=== PATIENT | male | born 1950 | race Caucasian/White ===

== ENCOUNTER 2017-12-19 10:39 | Emergency (ER) | payer MEDICARE ==
[2017-12-19 11:11] LABS: Bilirubin Moderate (Negative); Blood, Urine Large (Negative); Clarity CLOUDY (Clear); Glucose, Urine (Dipstick) >=1000 mg/dL (Negative); Leukocyte Small (Negative); Nitrite Positive (Negative); Protein, Urine (Dipstick) 300 mg/dL (Neg-Trace); Specific Gravity, Urine 1.034 (1.002-1.036); Urobilinogen 0.2 mg/dL (0.2-1.0); pH, Urine 5.5 (5.0-9.0)
[2017-12-19 11:16] LABS: Bacteria/HPF None Seen HPF (None Seen); Hyaline Casts/LPF 0-3 HYALINE CAST LPF (0-3 Hyaline); RBC/HPF 21-50 HPF (0-3); Squamous Epithelial None Seen HPF (0-3); WBC/HPF None Seen HPF (0-3)
== END 2017-12-19 12:55 | disposition home or self-care (01) ==
LOC: ERS 10:39
DX: R33.9 Retention of urine, unspecified (principal); R31.9 Hematuria, unspecified; I25.2 Old myocardial infarction; E11.9 Type 2 diabetes mellitus without complications; I10 Essential (primary) hypertension; Z87.891 Personal history of nicotine dependence; Z79.899 Other long term (current) drug therapy; Z79.82 Long term (current) use of aspirin; Z79.84 Long term (current) use of oral hypoglycemic drugs
CPT/HCPCS: 51702; 81003; 81015; 87086; 96374; 96375

== ENCOUNTER 2017-12-20 12:05 | Outpatient (CLI) | payer MEDICARE ==
[2017-12-20 14:49] LABS: Blood, Urine Large (Negative); Glucose, Urine (Dipstick) >=1000 mg/dL (Negative); Leukocyte Trace (Negative); Protein, Urine (Dipstick) 100 mg/dL (Neg-Trace)
[2017-12-20 14:52] LABS: Bilirubin Unable to Interpret (Negative); Clarity Opaque (Clear); Nitrite Unable to Interpret (Negative); Urobilinogen UNABLE TO INTERPRET mg/dL (0.2-1.0)
[2017-12-20 15:00] LABS: Specific Gravity, Urine 1.015 (1.005-1.030)
[2017-12-20 15:01] LABS: RBC/HPF GREATER THAN 50-TNTC HPF (0-3)
[2017-12-20 15:02] LABS: Bacteria/HPF None Seen HPF (None Seen); Hyaline Casts/LPF NONE SEEN LPF (0-3 Hyaline); PTT 28.3 SEC (22.9-36.1); Prothrombin Time 13.2 SEC (12.0-14.7); Squamous Epithelial 0-3 HPF (0-3)
--- NOTE | 2017-12-20 20:28 | EKG ---
Test Reason : Blood Pressure : / mmHG Vent. Rate : 102 BPM Atrial Rate : 102 BPM P-R Int : 194 ms QRS Dur : 106 ms QT Int : 380 ms P-R-T Axes : 026 116 124 degrees QTc Int : 495 ms Sinus tachycardia Right axis deviation Cannot rule out Anterior infarct , age undetermined T wave abnormality, consider lateral ischemia Abnormal ECG No previous ECGs available Confirmed by CORRINA GROSS ([id number]) on 12/20/2017 8:28:15 PM Referred By: REUBEN Confirmed By:CORRINA GROSS
== END 2017-12-20 12:06 | disposition home or self-care (01) ==
LOC: LABBT 12:05
PROVIDERS: ATTEND Urology
DX: Z01.818 Encounter for other preprocedural examination (principal); N20.0 Calculus of kidney; N32.89 Other specified disorders of bladder; R00.0 Tachycardia, unspecified; R94.31 Abnormal electrocardiogram [ECG] [EKG]
CPT/HCPCS: 81001; 85610; 85730; 87077; 87086; 87186; 93005; 93010

== ENCOUNTER 2017-12-27 07:09 | Outpatient (CLI) | payer MEDICARE | END 2017-12-27 07:10 | disposition home or self-care (01) | LOC: BICCT 07:09 | PROVIDERS: ATTEND Urology | DX: Z01.818 Encounter for other preprocedural examination (principal); R31.0 Gross hematuria; N32.89 Other specified disorders of bladder; N20.0 Calculus of kidney; N28.1 Cyst of kidney, acquired; I70.90 Unspecified atherosclerosis; K76.89 Other specified diseases of liver | CPT/HCPCS: 74178; 82565; 86850; 86900; 86901 ==

== ENCOUNTER 2017-12-29 05:40 | Day surgery (SDC) | payer MEDICARE ==
[2017-12-29] MEDS ORDERED: Levofloxacin 500 mg/D5W 100 ml Premix Bag ONE (06:30)
[2017-12-29] MEDS ORDERED: Iothalamate Meglumine 60% 50 ML VIAL FS ONE (06:35)
[2017-12-29] MEDS ORDERED: Fentanyl 100 MCG/2 ML VIAL ONE ×3 (06:43→09:10)
[2017-12-29] MEDS ORDERED: mitoMYcin 40 MG in Sterile Water 20 ML I-VESIC SCH (06:45)
[2017-12-29] MEDS ORDERED: B & O ONE (07:25)
[2017-12-29] MEDS ORDERED: Phenazopyridine HCl 97.5 MG TABLET ONE ×2 (09:58)
[2017-12-29] MEDS ORDERED: Oxybutynin 5 MG TAB ONE (10:02)
--- NOTE | 2017-12-29 10:24 | OP ---
DATE OF SURGERY: 12/29/2017 SERVICE: Urology. SURGEON: Gonsalo Carr M.D. PREOPERATIVE DIAGNOSIS: Bladder cancer. POSTOPERATIVE DIAGNOSIS: Bladder cancer. PROCEDURE PERFORMED: Transurethral resection of bladder tumor with instillation of mitomycin C. INDICATIONS FOR PROCEDURE: Mr. Goncalves is a 67-year-old white male who initially came to see me for g ross hematuria. Cystoscopy demonstrated a blood clot within the bladder with 2 large tumors on the a nterior bladder wall. I recommended resection of these with instillation of postoperative mitomycin C. Risks and benefits of surgery were discussed and he has agreed to proceed forward. DESCRIPTION OF PROCEDURE: After identification of armband and verification of consent, the patient w as brought back to the operating room, given general anesthesia with endotracheal intubation and para lytic. He was then placed in dorsal lithotomy position and prepped and draped in a usual sterile fas hion. After appropriate timeout, a lubricated 26 Egyptian resectoscope sheath with visual obturator wa s passed through the urethra into the bladder. Both tumors were noted and a full cystoscopy was perf ormed. There was one additional area of what appeared to be a flat papillary lesion just adjacent to one of the smaller tumors, but no other tumors were noted anywhere in the bladder. The visual obtur ator was switched out for the resectoscope sheath. Using bipolar with a cutting current, the tumors were both fully resected and the bases cauterized. Once the tumors were evacuated and sent off for r outine pathologic evaluation, additional sections were taken from the bladder tumor base of each tumo r. These were then sent off separately for routine pathologic evaluation. Hemostasis was performed with the coag function and once completely dry, the bladder was emptied and refilled to ensure there was no bleeding and none was seen. The cystoscope was then removed with some cautery being done righ t at the bladder neck as there was a fairly brisk bleed at that point due to the manipulation of the scope. This was controlled and then the resectoscope was removed. A 16 Egyptian two-way catheter was then placed into the bladder with 10 mL of sterile water in the balloon. Once all the fluid has been drained out, 40 mg of mitomycin C in 20 mL of water were instilled into the bladder and the catheter capped. A 16-A B&O suppository was then placed in the patient's rectum. The patient was then taken out of lithotomy, awakened and taken to PACU for recovery in stable condition. COMPLICATIONS: None. ESTIMATED BLOOD LOSS: Minimal. RETAINED TUBES AND DRAINS: A 16-Egyptian Lombardi catheter to be removed after the mitomycin C for an hour. DISPOSITION: The patient will be discharged home afterwards and [facility].
[2017-12-29] MEDS ORDERED: HYDROcodone/Acetaminophen 5/325 mg Tablet ONE (11:40)
[2017-12-29] MEDS ORDERED: PROPOFOL 200 MG/20 ML VIAL ONE (13:30)
[2017-12-29] MEDS ORDERED: Lidocaine 1% PF 5 ML VIAL ONE (13:30)
[2017-12-29] MEDS ORDERED: Ondansetron HCl/PF 4 MG/2 ML Vial ONE (13:30)
[2017-12-29] MEDS ORDERED: Glycopyrrolate 0.2 MG/ML 5 ML SYRINGE ONE (13:30)
[2017-12-29] MEDS ORDERED: diphenhydrAMINE 50 MG/ML VIAL ONE (13:30)
[2017-12-29] MEDS ORDERED: Metoclopramide HCl 10 MG/2 ML VIAL ONE (13:30)
[2017-12-29] MEDS ORDERED: PHENYLEPHRINE-NS 100 MCG/ML 10 ML SYRINGE ONE (13:30)
== END 2017-12-29 11:48 | disposition home or self-care (01) ==
LOC: SDC 05:40
PROVIDERS: ATTEND Urology
PROC: 0TBB8ZX Excision of Bladder, Via Natural or Artificial Opening Endoscopic, Diagnostic (ICD-10-PCS; principal; 2017-12-29)
DX: C67.3 Malignant neoplasm of anterior wall of bladder (principal); N20.0 Calculus of kidney; I25.10 Atherosclerotic heart disease of native coronary artery without angina pectoris; E11.9 Type 2 diabetes mellitus without complications; E78.5 Hyperlipidemia, unspecified; Z79.82 Long term (current) use of aspirin; Z79.84 Long term (current) use of oral hypoglycemic drugs; Z79.899 Other long term (current) drug therapy; Z95.5 Presence of coronary angioplasty implant and graft; Z98.890 Other specified postprocedural states
CPT/HCPCS: 52235; 88305; 96374; C1769; J9280; A4216; J1200; J1956; J2001; J2405; J2704; J2765; J3010; Q9961

== ENCOUNTER 2018-01-23 12:24 | Outpatient (CLI) | payer MEDICARE ==
[2018-01-23 14:06] LABS: Hemoglobin 15.5 g/dL (14.0-18.0); Mean Corpuscular HGB CONC 34.6 g/dL (32.0-36.0); Mean Corpuscular Hemoglobin 31.3 pg (27.0-31.0); Mean Corpuscular Volume 90.6 fl (80.0-94.0); Mean Platelet Volume 7.5 fL (7.4-10.4); Platelet Count 202 thou/uL (130-400); RBC Distribution Width 11.7 % (11.5-14.5); Red Blood Cell (RBC) Count 4.96 mill/uL (4.70-6.10); White Blood Cell (WBC) Count 7.3 thou/uL (4.8-10.8)
[2018-01-23 14:13] LABS: Bilirubin Negative (Negative); Blood, Urine Moderate (Negative); Clarity CLEAR (Clear); Glucose, Urine (Dipstick) >=1000 mg/dL (Negative); Leukocyte Small (Negative); Nitrite Negative (Negative); PTT 28.3 SEC (22.9-36.1); Protein, Urine (Dipstick) Negative (Neg-Trace); Specific Gravity, Urine 1.033 (1.002-1.036); Urobilinogen 0.2 mg/dL (0.2-1.0)
[2018-01-23 14:19] LABS: Bacteria/HPF None Seen HPF (None Seen); Hyaline Casts/LPF 0-3 HYALINE CAST LPF (0-3 Hyaline); Pathc Cast-AUWi Flag 0.14 (0-2.49); Squamous Epithelial None Seen HPF (0-3)
[2018-01-23 14:35] LABS: Anion Gap 14 mmol/L (10-20); BUN (Urea Nitrogen) 18 mg/dL (8.4-25.7); Calc. Creatinine Clearance 0 mL/min (70-130); Calcium 9.5 mg/dL (7.8-10.44); Carbon Dioxide 23 mmol/L (23-31); Chloride 105 mmol/L (98-107); Estimated GFR-MDRD 81; Glucose 95 mg/dL (80-115); Potassium 4.4 mmol/L (3.5-5.1); Sodium 138 mmol/L (136-145)
== END 2018-01-23 12:25 | disposition home or self-care (01) ==
LOC: LABBT 12:24
PROVIDERS: ATTEND Urology
DX: Z01.818 Encounter for other preprocedural examination (principal); C67.9 Malignant neoplasm of bladder, unspecified
CPT/HCPCS: 80048; 81001; 85027; 85610; 85730; 86850; 86900; 86901; 87086

== ENCOUNTER 2018-01-30 11:20 | Day surgery (SDC) | payer MEDICARE ==
[2018-01-23 13:04] VITALS: BMI 37.2
[2018-01-30] MEDS ORDERED: Dexamethasone 20 MG/5 ML VIAL ONE (12:37)
[2018-01-30] MEDS ORDERED: PHENYLEPHRINE-NS 100 MCG/ML 10 ML SYRINGE ONE (12:37)
[2018-01-30] MEDS ORDERED: Lidocaine 1% PF 5 ML VIAL ONE (12:37)
[2018-01-30] MEDS ORDERED: Glycopyrrolate 0.2 MG/ML 5 ML SYRINGE ONE (12:37)
[2018-01-30] MEDS ORDERED: PROPOFOL 200 MG/20 ML VIAL ONE (12:37)
[2018-01-30] MEDS ORDERED: Ondansetron HCl/PF 4 MG/2 ML Vial ONE (12:37)
[2018-01-30] MEDS ORDERED: Levofloxacin 500 mg/D5W 100 ml Premix Bag ONE (12:45)
[2018-01-30] MEDS ORDERED: Fentanyl 100 MCG/2 ML VIAL ONE ×2 (13:54→13:59)
[2018-01-30] MEDS ORDERED: Midazolam HCl 2 mg/2 ml Vial ONE (13:59)
--- NOTE | 2018-01-30 19:29 | OP ---
DATE OF PROCEDURE: 01/30/2018 SERVICE: Urology. SURGEON: Gonsalo Carr M.D. PREOPERATIVE DIAGNOSIS: Bladder cancer. POSTOPERATIVE DIAGNOSIS: Bladder cancer. PROCEDURE PERFORMED: Repeat TURBT 2-5 cm. INDICATIONS FOR PROCEDURE: Mr. 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 There was not adequate muscle in the tumor resection spe cimen. Therefore, he is being brought back to the operating room to get deeper resection to ensure t hat there was no remnant muscle invasive or residual cancer. Risks and benefits of surgery have been discussed and he has agreed to proceed forward. DESCRIPTION OF PROCEDURE: After identification of armband and verification of consent, the patient w as brought back to the operating room and he underwent general anesthesia with endotracheal intubatio n. He was then placed in dorsal lithotomy position and prepped and draped in sterile fashion. After appropriate timeout, a lubricated 26 Lithuanian resectoscope sheath with visual obturator was placed thr ough the patient's penis into the urethra. The prostate showed the previous healing resection site t owards the bladder neck to allow for entry into the prostate. The tumor bed looked like it had heali ng fibrinous tissue over it. Otherwise, there was no obvious tumor visible. The fibrinous tissue wa s scraped free using cold resectoscope movements to expose the underlying healing tissues. This was resected to a depth of an additional probably 3-4 mm until adequate detrusor fibers could be seen. T he chips were sent for routine pathologic evaluation and the base was cauterized adequately. Upon co mpletion, the tumor bed looked well coagulated and there did not appear to be any residual tumor. Th e chips were sent off to pathology and the patient's bladder was drained and he was awakened and take n to PACU for recovery in stable condition. COMPLICATIONS: None. ESTIMATED BLOOD LOSS: Minimal. RETAINED TUBES AND DRAINS: None. SPECIMENS: Previous bladder tumor resection site. DISPOSITION: The patient will be discharged home and follow up with me in approximately a week for a postop check.
== END 2018-01-30 17:13 | disposition home or self-care (01) ==
LOC: SDC 11:20
PROVIDERS: ATTEND Urology
PROC: 0TBB8ZZ Excision of Bladder, Via Natural or Artificial Opening Endoscopic (ICD-10-PCS; principal; 2018-01-30)
DX: C67.1 Malignant neoplasm of dome of bladder (principal); I25.10 Atherosclerotic heart disease of native coronary artery without angina pectoris; E11.9 Type 2 diabetes mellitus without complications; E78.5 Hyperlipidemia, unspecified; Z87.891 Personal history of nicotine dependence; Z79.82 Long term (current) use of aspirin; Z79.899 Other long term (current) drug therapy
CPT/HCPCS: 88305; J0131; J1956; J2250; J3010

== ENCOUNTER 2019-01-15 08:38 | Outpatient (CLI) | payer MEDICARE ==
[2019-01-15 09:50] LABS: Estimated GFR-MDRD - POC Greater than 90
--- NOTE | 2019-01-15 10:58 | CT ---
ABDOMEN CT WITH AND WITHOUT CONTRAST PELVIC CT WITH AND WITHOUT CONTRAST: COMPARISON: 12/19/2017. HISTORY: Malignant neoplasm of the domed urinary bladder. FINDINGS: ABDOMEN CT: Lung bases are clear. Heart size is normal. No significant pericardial fluid. Visualized aorta has a normal caliber. No periaortic fat stranding. Portal vein is patent. Unremarkable gallbladder. Redemonstration of hypodensities scattered throughout the hepatic parenchyma. The majority of these hypodensities are too small to characterize. The largest hypodensity measures 2.1 x 0.6 cm and has a n attenuation coefficient of 9 Hounsfield units suggesting hepatic cyst. No enhancing mass in the li bernabe. Spleen, pancreas, and adrenal glands have appropriate enhancement. No gastrohepatic, retrocrural, or periportal lymphadenopathy. No mesenteric mass, lymphadenopathy, free air, or free fluid. Limited evaluation of the alimentary canal by lack of oral contrast. Grossly, no evidence of small b owel obstruction. Ileocecal junction is unremarkable. Appendix is not appreciated. No inflammation of the cecal apex. Diverticulosis, without evidence of diverticulitis. Bilaterally, no hydronephrosis or perinephric fat stranding. Punctate 1 mm calcification in the left upper pole intrarenal collecting system. There is a well-circumscribed hypodensity in the mid left renal cortex likely representing a small complex cortical cyst with a noncontrast attenuation coeffic ient of 14 Hounsfield units. Attenuation coefficient on the arterial phase images 30 Hounsfield unit s. On the expiratory phase, attenuation coefficient is 29 Hounsfield units. There are bilateral rig ht greater than left parapelvic cysts. No evidence of obstructive uropathy. There is symmetric excr etion into a normal caliber intrarenal and extrarenal collecting system. Incomplete opacification of both ureters. Subcentimeter hypodensity emanating from the lower pole of the right kidney, too smal l to characterize. CT PELVIS: No mass, lymphadenopathy, free air, or free fluid. There is contrast in the dependent portion of the urinary bladder without filling defect. Mild prost ate gland hypertrophy. No lytic or blastic lesions in the osseous structures. IMPRESSION: 1. No evidence of obstructive uropathy. 2. Probable complex right renal cyst. 3. No mucosal abnormality in the base of the urinary bladder. Cystoscopy if clinically warranted. POS: OFF
== END 2019-01-15 08:39 | disposition home or self-care (01) ==
LOC: BICCT 08:38
PROVIDERS: ATTEND Urology
DX: C67.1 Malignant neoplasm of dome of bladder (principal)
CPT/HCPCS: 74178; 82565

== ENCOUNTER 2019-06-06 06:44 | Outpatient (CLI) | payer MEDICARE ==
[2019-06-06 15:01] LABS: Mean Corpuscular HGB CONC 33.8 g/dL (32.0-36.0); Mean Corpuscular Hemoglobin 31.1 pg (27.0-31.0); Mean Corpuscular Volume 91.8 fL (78.0-98.0); Platelet Count 204 thou/uL (130-400); RBC Distribution Width 12.1 % (11.5-14.5); Red Blood Cell (RBC) Count 5.14 mill/uL (4.70-6.10); White Blood Cell (WBC) Count 8.1 thou/uL (4.8-10.8)
[2019-06-06 15:07] LABS: PTT 28.6 SEC (22.9-36.1); Prothrombin Time 12.9 SEC (12.0-14.7)
[2019-06-06 15:14] LABS: Bacteria/HPF None Seen HPF (None Seen); Bilirubin Negative (Negative); Blood, Urine Negative (Negative); Clarity Clear (Clear); Glucose, Urine (Dipstick) Greater than 1000 mg/dL (Negative); Leukocyte Negative Leu/uL (Negative); Nitrite Negative (Negative); Protein, Urine (Dipstick) Negative (Neg-Trace); RBC/HPF 0-3 HPF (0-3); Squamous Epithelial 0-3 HPF (0-3); Urobilinogen Normal mg/dL (Less than 2); WBC/HPF 0-3 HPF (0-3)
[2019-06-06 15:21] LABS: Anion Gap 12 mmol/L (10-20); BUN (Urea Nitrogen) 14 mg/dL (8.4-25.7); Calc. Creatinine Clearance 0 mL/min (70-130); Calcium 9.6 mg/dL (7.8-10.44); Carbon Dioxide 26 mmol/L (23-31); Chloride 104 mmol/L (98-107); Estimated GFR-MDRD Greater than 90; Glucose 77 mg/dL (80-115); Potassium 3.8 mmol/L (3.5-5.1); Sodium 138 mmol/L (136-145)
--- NOTE | 2019-06-06 16:58 | EKG ---
Test Reason : Blood Pressure : / mmHG Vent. Rate : 079 BPM Atrial Rate : 079 BPM P-R Int : 208 ms QRS Dur : 114 ms QT Int : 392 ms P-R-T Axes : 043 056 008 degrees QTc Int : 449 ms Normal sinus rhythm Cannot rule out Anterior infarct Abnormal ECG Confirmed by SHRUTHI RIGGINS ([id number]) on 06/06/2019 4:58:46 PM Referred By: REUBEN Confirmed By:SHRUTHI RIGGINS
== END 2019-06-06 06:45 | disposition home or self-care (01) ==
LOC: LABBT 06:44
PROVIDERS: ATTEND Urology
DX: Z01.818 Encounter for other preprocedural examination (principal); C67.1 Malignant neoplasm of dome of bladder
CPT/HCPCS: 80048; 81001; 82670; 84153; 84403; 85027; 85610; 85730; 87086; 93005; 93010

== ENCOUNTER 2019-06-13 09:09 | Day surgery (SDC) | payer MEDICARE ==
[2019-06-06 13:16] VITALS: BMI 37.2
[2019-06-13] MEDS ORDERED: Ondansetron PF 4 MG/2 ML Vial ONE (09:33)
[2019-06-13] MEDS ORDERED: Lidocaine 1% PF 5 ML VIAL ONE (09:33)
[2019-06-13] MEDS ORDERED: Dexamethasone 20 MG/5 ML VIAL ONE (09:33)
[2019-06-13] MEDS ORDERED: PROPOFOL 200 MG/20 ML VIAL ONE (09:33)
[2019-06-13] MEDS ORDERED: Levofloxacin 500 mg/D5W 100 ml Premix Bag ONE (10:06)
[2019-06-13] MEDS ORDERED: mitoMYcin 40 MG in Sterile Water 20 ML FS SCH (11:30)
[2019-06-13] MEDS ORDERED: Iothalamate Meglumine 60% 50 ML VIAL FS ONE (11:30)
[2019-06-13] MEDS ORDERED: B & O ONE (11:30)
[2019-06-13] MEDS ORDERED: Fentanyl 100 MCG/2 ML VIAL ONE (11:38)
--- NOTE | 2019-06-13 13:03 | RAD ---
Exam: Intraprocedure fluoroscopy for retrograde IVP HISTORY: Bladder tumor FINDINGS: 2 intraprocedural fluoroscopic views demonstrate retrograde opacification of a normal calib er intra and extra renal collecting, bilaterally. IMPRESSION: Intraprocedural fluoroscopy as above.
--- NOTE | 2019-06-13 13:53 | OP ---
DATE OF PROCEDURE: 06/13/2019 SERVICE: Urology. PREOPERATIVE DIAGNOSIS: Bladder cancer. POSTOPERATIVE DIAGNOSIS: Bladder cancer. PROCEDURES PERFORMED: Bladder biopsy with removal of small tumor, installation of postoperative mitomycin-C, and bilateral retrograde pyelogram. INDICATION FOR PROCEDURE: Mr. Goncalves is a 68-year-old white male with history of bladder cancer in the past. He is currently on surveillance and was found to have a small tumor at his right lateral bladder wall just proximal to the ureteral orifice. He is being brought back to the operating room for retrograde pyelogram as well as bladder biopsy. All risks and benefits of the surgery have been discussed. He agreed to proceed forward. DESCRIPTION OF PROCEDURE: After identification of armband and verification of consent, the patient was brought back to the operating room, where he underwent general anesthesia with an LMA. He was placed in the dorsal lithotomy position and prepped and draped in usual sterile fashion. After appropriate time-out, a lubricated 22-Angolan rigid cystoscope was introduced per urethra into the bladder and a full cystoscopy was performed. The only tumor noted was the tumor noted previously at the right lateral bladder wall just proximal to the ureteral orifice. There was a red area on the anterior bladder wall, which could not be differentiated as to exactly what this was. Since we were in the operating room, I made a decision to go ahead with biopsy and remove both of these areas. We had elected to start with a retrograde pyelogram as first since there was no bleeding currently. A 5-Angolan Pollack catheter was introduced into the left ureteral orifice and retrograde pyelogram performed demonstrating a slender ureter and normal renal pelvis with cupped calyces and no hydronephrosis or filling defects. The same procedure was repeated on the right, and again no hydronephrosis, filling defects with slender ureter and normal calyces and renal pelvis. Both sides drained well when the Pollack catheter was removed. Cold cup biopsy forceps were brought in and used to remove the tumor just proximal to the right ureteral orifice as well as the red area on the anterior bladder wall. These areas were then both fulgurated with a Bugbee electrode. There was excellent hemostasis. The bladder was left full. The cystoscope was removed, and an 18-Angolan Lombardi catheter was placed with ease into the bladder with 10 mL of sterile water into the balloon, 40 mg of mitomycin-C in 20 mL of H2O was introduced through the Lombardi catheter into the bladder and a catheter plug affixed. The patient had a B and O suppository placed, was then awakened, taken to PACU for recovery in stable condition. COMPLICATIONS: None. ESTIMATED BLOOD LOSS: Minimal. RETAINED TUBES AND DRAINS: 18-Angolan Lombardi catheter. SPECIMENS: Bladder biopsy x2. DISPOSITION: The patient will be kept in PACU for mitomycin-C holding. We will then drain his bladder after an hour and make sure he can void and then he can be discharged home with followup on an outpatient basis. Job ID: [id number]
== END 2019-06-13 15:57 | disposition home or self-care (01) ==
LOC: SDC 09:09
PROVIDERS: ATTEND Urology
PROC: 0TBB8ZX Excision of Bladder, Via Natural or Artificial Opening Endoscopic, Diagnostic (ICD-10-PCS; principal; 2019-06-13)
DX: C67.9 Malignant neoplasm of bladder, unspecified (principal); N30.00 Acute cystitis without hematuria; N30.20 Other chronic cystitis without hematuria; E11.9 Type 2 diabetes mellitus without complications; I25.10 Atherosclerotic heart disease of native coronary artery without angina pectoris; I10 Essential (primary) hypertension; E78.5 Hyperlipidemia, unspecified; Z79.84 Long term (current) use of oral hypoglycemic drugs; Z79.899 Other long term (current) drug therapy
CPT/HCPCS: 52234; 74420; J9280; 88305; C1758; J1100; J1956; J2001; J2405; J2704; J3010

== ENCOUNTER 2020-05-04 12:27 | Outpatient (CLI) | payer MEDICARE ==
[~2020-05-04 12:27] MED LIST: Iopamidol 370 76% 100 ML VIAL ONE
--- NOTE | 2020-05-04 15:44 | CT ---
CT OF THE ABDOMEN AND PELVIS WITH AND WITHOUT CONTRAST: INDICATION: History of bladder malignancy and hematuria. COMPARISON: Prior exam dated 01/15/2019. FINDINGS: There is a 5 mm nonobstructing calculus involving the superior pole of the left kidney. There are bi lateral peripelvic cysts. No solid renal lesion is evident. There is asymmetric wall thickening involving the anterior superior aspect of the bladder dome, best seen on image 118 of series 4 measuring approximately 1.7 x 5.9 cm. There is some reticulation of th e fat adjacent to the anterior aspect of the bladder suspicious for transmural involvement. No additional gross urothelial lesion is evident. Lung bases are clear. There is mild fatty liver. There are 2 stable hepatic cysts within the left hepatic lobe. The gallbladder, pancreas, adrenal glands, and spleen appear within normal limits. There are moderate calcifications noted involving the abdominopelvic vasculature. No enlarged lymph nodes or free fluid is evident. There is a mild amount of retained stool within the colon. There is mild prostate enlargement measur ing 6.1 cm. The rectal and perirectal soft tissues are unremarkable-appearing. No definite acute os seous abnormality is evident. IMPRESSION: 1. Irregular soft tissue mass involving the anterior bladder dome with reticulation seen involving t he adjacent fat near the superior aspect of the bladder dome suspicious for a transmural recurrent bl adder malignancy. Recommend direct visualization. 2. No overt evidence to suggest metastatic disease of the abdomen or pelvis. 3. Bilateral parapelvic cysts. 4. Stable left nephrolithiasis. 5. Stable left hepatic lobe cyst. 6. Prostate enlargement. POS: JULEE
== END 2020-05-04 12:28 | disposition home or self-care (01) ==
LOC: BICCT 12:27
PROVIDERS: ATTEND Urology
DX: C67.1 Malignant neoplasm of dome of bladder (principal); N20.0 Calculus of kidney; N40.0 Benign prostatic hyperplasia without lower urinary tract symptoms; K76.89 Other specified diseases of liver; N28.1 Cyst of kidney, acquired; M79.89 Other specified soft tissue disorders
CPT/HCPCS: 74178; 82565; Q9967

== ENCOUNTER → 2023-03-21 | Day surgery (SDC) | payer MEDICARE ==
[2023-03-17 12:30] VITALS: BMI 34.0
[~2023-03-21] MED LIST changes: +Heparin 10,000 UNITS/ 10 ML VIAL ONE; +Heparin 25,000 units/D5W 500 ML ONE; -Iopamidol 370 76% 100 ML VIAL ONE; +Isoproterenol 0.2 MG/1 ML AMP ONE; +Lidocaine 1% PF 5 ML VIAL ONE; +PROPOFOL 200 MG/20 ML VIAL ONE; +Protamine Sulfate 50 MG/5 ML VIAL ONE; +Rocuronium Bromide 10 MG/ML (10ML VIAL) ONE; +Rocuronium Bromide 50 MG/5 ML VIAL ONE; +SUGAMMADEX SODIUM 200 MG/2 ML VIAL ONE; +fentaNYL 50 mcg/mL 1 mL Vial ONE; +fentaNYL PF 100 MCG/2 ML SYRINGE ONE
== END ==
LOC: SDC 06:01
PROVIDERS: ATTEND Internal Medicine Cardiovascular Disease
DX: I48.0 Paroxysmal atrial fibrillation (principal); I47.1 Supraventricular tachycardia; I34.0 Nonrheumatic mitral (valve) insufficiency; I25.10 Atherosclerotic heart disease of native coronary artery without angina pectoris; I10 Essential (primary) hypertension; I25.2 Old myocardial infarction; G47.33 Obstructive sleep apnea (adult) (pediatric); E11.9 Type 2 diabetes mellitus without complications; Z90.49 Acquired absence of other specified parts of digestive tract; Z87.891 Personal history of nicotine dependence; Z79.01 Long term (current) use of anticoagulants; Z79.84 Long term (current) use of oral hypoglycemic drugs; Z79.899 Other long term (current) drug therapy
CPT/HCPCS: 85347 ×2; 93005; 93312; 93653; 93655; C1730; C1731; C1732; C1760; C1769; C1894 ×5; C2630; J3010; J1644; J2704; J2720